=== PATIENT | male | born 1960 | race Caucasian/White ===

== ENCOUNTER 2016-10-20 16:16 | Emergency (ER) | payer OTHER ==
[~2016-10-20] VITALS: Ht 170.2 cm; Wt 83.4 kg
[2016-10-20 16:20] VITALS: BP 165/96; PULSE 71; TEMP 36.7; O2SAT 96; Ht 170.2 cm; Wt 83.4 kg
[2016-10-20] MEDS ORDERED: AMOX875T PO (16:48)
[2016-10-20] MEDS ORDERED: METH4PAK PO (16:48)
--- NOTE | 2016-10-20 16:49 | EMERGENCY ROOM VISIT NOTE ---
ED Visit Note First contact with patient: 16:33 CHIEF COMPLAINT: Cold symptoms HISTORY OF PRESENT ILLNESS: This is a 56-year-old male patient who presents to the emergency department ambulatory complaining of pain with swallowing that radiates into the ear and to the right side of the gum and jaw. He denies any fever. The patient does not complain of a headache, abdominal pain, nausea, or vomiting. The patient has not had any shortness of breath. The patient does not know of anybody around them who has been sick. The patient has taken nothing. The patient is edentulous but does wear dentures during the day. He denies any open areas in the gum. REVIEW OF SYSTEMS: A 10 system review of systems was completed with positives and pertinent negatives listed in the HPI. ALLERGIES: No known drug allergies MEDICATIONS: Antacid PMH: GERD SOCIAL HISTORY:. He does not smoke PHYSICAL EXAM: Vital Signs: Reviewed Nurse's notes, temperature 36.7C orally, the remainder of the vital signs were normal. GENERAL: 56-year-old unkempt male, in no acute distress, non toxic in appearance , nondiaphoretic, well-developed well-nourished. SKIN: The skin was without rashes, erythema, edema, or bruising. Capillary reflex less than 2 seconds. HEAD: Normocephalic atraumatic. EARS: External auditory canals clear, tympanic membrane injected on the right, pearly rosenberg on the left EYES: Pupils equal round and reactive to light and accommodation. Conjunctivae without injection, sclerae without icterus. Extraocular movements intact. NOSE: Patent, turbinates inflammed with clear discharge. There is no sinus tenderness. MOUTH: Mucous membranes moist. The patient is edentulous. Tonsils are not enlarged and not erythematous without exudate. The uvula is edematous, erythematous, right more than left. There is no drooling, trismus, hot potato voice, soft palate involvement to suggest peritonsillar abscess. Pharynx negative for postnasal drip. NECK: Supple without nuchal rigidity. There is no lymphadenopathy. HEART: Regular rate and rhythm without murmurs gallops or rubs. LUNGS: Clear to auscultation bilaterally without wheezes, rales or rhonchi. NEURO: Patient was alert and oriented to person place and time. ED COURSE: The patient appears to have uvulitis. There is no evidence for peritonsillar abscess at this time but he was advised to watch closely and return with any hot potato voice, drooling, trismus, difficulty swallowing, worsening symptoms. His airway is patent. He will be treated with Augmentin and prednisone. He should follow-up with his family doctor for a recheck later this week. He may need evaluation by otolaryngology if the symptoms do not resolve. The patient was discharged home in good condition. Current/Historical Medications Scheduled Amoxicillin & Pot Clavulanate (Augmentin 875-125 mg), 1 TAB PO BID Antacid (Antacid), 1 DOSE PO BID Methylprednisolone (Medrol Dosepak), 1 PKT PO UD Scheduled PRN Acetaminophen (Tylenol), 1,000 MG PO Q6H PRN for Pain Allergies Coded Allergies: No Known Allergies (Unverified , 10/20/16) Vital Signs Date Time Temp Pulse Resp B/P (MAP) Pulse Ox O2 Delivery O2 Flow Rate FiO2 10/20/16 16:20 36.7 71 18 165/96 96 Room Air Medications Administered Medications (Trade) Dose Ordered Sig/Maureen Route Start Time Stop Time Status Last Admin Dose Admin Amoxicillin/ Clavulanate Potassium (Augmentin 875MG Home Pack) 1 homepack UD ONCE PO 10/20/16 17:00 10/20/16 17:01 DC 10/20/16 16:59 1 HOMEPACK Prednisone (PredniSONE TAB) 20 mg NOW STAT PO 10/20/16 16:49 10/20/16 16:50 DC 10/20/16 16:58 20 MG Departure Information Impression Primary Impression: Uvulitis Dispostion Home / Self-Care Condition GOOD Prescriptions Methylprednisolone (MEDROL DOSEPAK) 4 Mg Nikko 1 PKT PO UD, #1 PKT Prov: Dahiana Pierce PA-C 10/20/16 Amoxicillin & Pot Clavulanate (Augmentin 875-125 mg) 1 Tab Tab 1 TAB PO BID for 10 Days, #20 TAB Prov: Dahiana Pierce PA-C 10/20/16 Referrals No Doctor, Assigned (PCP) Patient Instructions ED Uvulitis, [facility] Additional Instructions Augmentin every 12 hours for 10 days Prednisone as prescribed, until finished Return to the emergency department with hot potato voice, drooling, difficulty swallowing, difficulty breathing or any generalized worsening symptoms Otherwise, recheck with your family doctor at the end of the week
[2016-10-20] MEDS ORDERED: ACET-1256 PO (16:52)
[2016-10-20] MEDS ORDERED: ANT PO (16:52)
[2016-10-20] MEDS ORDERED: AMOXICIL/CLAVU 875MG HOME PACK PO ONE (17:00)
== END 2016-10-20 17:00 | disposition home or self-care (01) ==
LOC: C.EDB 16:17 → C.EDD 17:00
DX: K12.2 Cellulitis and abscess of mouth (principal); K21.9 Gastro-esophageal reflux disease without esophagitis